=== PATIENT | female | born 1950 | race Caucasian/White ===

== ENCOUNTER 2017-09-11 07:30 | Inpatient (IN) ==
[~2017-09-11 07:30] MED LIST: ACETAMINOPHEN 500 MG TABLET PO ONE; DEXAMETHASONE 4 MG/ML INJECTION IVP ONE; FAMOTIDINE PB 20 MG/50 ML BAG IV ONE; LIDOCAINE 1% (10mg/ml) 2mL INJ PF SDV ID ONE; METOCLOPRAMIDE 10mg/2ml INJECTION IVP ONE; NOZIN NASAL SWAB NAS ONE; ONDANSETRON 4 MG/2 ML INJECTION IVP ONE; TRANEXAMIC ACID 1,000 MG in NS 100 ML IV ONE
[2017-09-11] MEDS ORDERED: EPINEPHrine PF 0.25 MG, BUPIVACAINE 0.25% PF 30 ML, MORPHINE SULFATE 15 MG, KETOROLAC I... OPSITE ONE (08:00)
[2017-09-11 08:44] VITALS: BMI 25.5
[2017-09-11] MEDS: LR 1,000 ML IV SCH ×2 (09:20→12:03)
--- NOTE | 2017-09-11 09:26 | Anesthesia Preoperative Report ---
Anesthesia Preoperative Record - Date and Time Date: 09/11/17 Preoperative Diagnosis: Rt TKA M17.11 NPO Since Date: 09/10/17 NPO Since Time: 00:00 Allergies/Adverse Reactions: Allergies Allergy/AdvReac Type Severity Reaction Status Date / Time hydrocodone [From [place]] Allergy Unknown itching, Verified 09/08/17 09:03 hives - Vital Signs Vital Signs: Temperature 98.6 F 09/11/17 08:42 Pulse Rate 81 09/11/17 09:01 Respiratory Rate 12 09/11/17 08:42 Blood Pressure 144/70 H 09/11/17 08:42 Pulse Oximetry 93 09/11/17 08:42 Height and Weight: Height 1.68 m Weight 71.9 kg Body Mass Index 25.5 - Medications Inpatient Medications: Current Medications Cefazolin Sodium (Kefzol) 2 g IVP PREOP ONE Stop: 09/11/17 10:31 Lactated Ringer's (Lactated Ringers) 1,000 mls @ 50 mls/hr IV .Q20H WILBER Epinephrine HCl 0.25 mg/Bupivacaine HCl 30 ml/Morphine Sulfate 15 mg/Ketorolac Tromethamine 60 mg/Sodium Chloride 65.25 mls @ 1 mls/hr OPSITE INTRAOP ONE PRN Reason: Protocol Stop: 09/14/17 01:14 Sodium Chloride (Iv Flush) 10 - 80 ml IV PRN PRN PRN Reason: [place] Home Medications: Home Medications Medication Instructions Recorded Confirmed Type Ascorbate Calcium [Vitamin C] 500 mg PO DAILY #0 08/16/10 09/11/17 History PARoxetine HCl [Paxil] 20 mg PO DAILY #0 08/16/10 09/11/17 History Aleve (Naproxen) 220 mg capsule 440 mg PO AM PRN 07/21/17 09/11/17 History Calcium Citrate/Vitamin D3 2 tab PO DAILY 07/21/17 09/11/17 History [Citracal + D Maximum Caplet] lutein 6 mg tablet 6 mg PO DAILY tab 07/21/17 09/11/17 History Acetaminophen [Tylenol] 1,000 mg PO Q5H 09/11/17 09/11/17 History Is Patient on Beta [place]?: No - Medical History Respiratory: DENIES: Sleep Apnea Gastrointestional: Reports: Other (IBS-takes Paxil to help control) Neuro/Musculoskeletal: Reports: HX.MS.OSAR Other History: Reports: Anesthesia Reactions (N/V), Other (psoriasis ON SCALP) - Surgical History HEENT Surgeries: Reports: Eye Surgery (left blepharoplasty) GI Surgery/Treatments: Reports: Colonoscopy Musculoskeletal Surgery/Tx: Reports: Knee Arthroscopy (Lt and Rt), Total Knee Replacement (LEFT) Anesthesia Reactions: None Hx Family Anesthesia Reaction: No History of Motion Sickness: No - Social History Smoking Status: Never smoker Hx Chewing Tobacco Use: No Second Hand Exposure: No Substance Use Type: does not use Alcohol Intake Frequency: does not drink - Pertinent Findings EKG: Sinus Rhythm - Physical Exam Respiratory Exam: Present: lungs clear Cardiovascular Exam: Present: regular rate and rhythm - Airway Assessment Mallampati Score: II Neck Extension: good Overall Assessment: no airway concerns - ASA ASA Score: 2 - Plan Anesthesia: General TIVA, General Inhalation Gases, Neuroaxial Regional/Trunk Block: Spinal Peripheral Nerve Block: Saphenous-Right - Discussion Discussion: Discussed risks/options/alternatives of anesthesia and questions answered. Patient consents. Nursing pain assessment noted. Attestation Statement: Prior to the delivery of any anesthetic medication, I examined the patient, developed the plan, obtained the patient's consent and discussed the risk and benefits of the procedure with the patient/guardian. - Additional Information Seen by Anesthesia: Yes
[2017-09-11] MEDS ORDERED: MIDAZOLAM 2mg/2ml INJECTION ONE (10:02)
[2017-09-11] MEDS ORDERED: FentaNYL 100 MCG/2 ML INJECTION ONE (10:02)
[2017-09-11] MEDS ORDERED: KETAMINE 500 MG/10 ML INJECTION ONE (10:03)
[2017-09-11] MEDS ORDERED: PROPOFOL 500 MG/50 ML VIAL IV ONE ×2 (10:04→11:52)
[2017-09-11] MEDS ORDERED: ONDANSETRON 4 MG/2 ML INJECTION ONE (10:05)
[2017-09-11] MEDS ORDERED: CEFAZOLIN 1 G INJECTION IVP ONE (10:30)
[2017-09-11] MEDS ORDERED: VANCOMYCIN 1,000 MG INJECTION ONE (10:36)
[2017-09-11] MEDS ORDERED: SALINE FLUSH 10ml SYRINGE ONE (11:16)
[2017-09-11] MEDS ORDERED: PHENYLEPHRINE INJ 10 MG/ML VIAL IV ONE (11:17)
[2017-09-11] MEDS ORDERED: GLYCOPYRROLATE 0.4 MG/2 ML INJECTION ONE (11:43)
[2017-09-11] MEDS ORDERED: SUCCINYLCHOLINE 20mg/mL 10mL INJECTION ONE (11:43)
[2017-09-11] MEDS ORDERED: VANCOMYCIN 1,000 MG INJECTION IAR ONE (11:45)
[2017-09-11] MEDS ORDERED: ROPIVACAINE 0.5% (5mg/ml) 30ml INJ ONE (11:49)
--- NOTE | 2017-09-11 12:27 | Operative Note ---
- Procedure Preoperative Diagnosis: Right knee primary degenerative joint disease Postoperative Diagnosis: Same as preoperative diagnosis. Surgeon: Carlos Rosario MD Analyst [employer]: [employer]as Complications: None. Anesthesia: Spinal. Estimated Blood Loss: See Anesthesia Record. Fluids: Please see Anesthesia Record. Description of Procedure: Mrs. Chin and her right knee were identified and marked in the preoperative holding area. She was brought back to the operating suite after a saphenous nerve block was placed in the preoperative holding area. Spinal anesthetic was administered and she was placed supine on the operating table. The right lower extremity was prepped and draped in my normal sterile fashion. Timeout was performed. The [employer] robot was used during the surgery. She had a fixed varus deformity with no flexion contracture. A standard anterior midline incision followed by medial parapatellar arthrotomy was performed. Anterior fat pad and meniscus were removed. The patella was resurfaced to a size 32. Tibial and femoral arrays were placed both within the original incision. Checkpoints were then placed both in the femur and the tibia. The bone was then registered with the [employer] robot. Osteophytes were removed and gaps were captured both 90 and 0 with correction. Because of her hyperextension of 1-2 I balanced her with gaps at 17 mm in extension and 18 mm in flexion. The [employer] robotic arm was then used to assist with the bone cuts. Posterior osteophytes and remaining meniscus were removed. Trial components were placed. We used a 4 femur and a 4 tibia with a 9 mm spacer. She tracked well and was well balanced throughout range of motion. Her bone quality was excellent so I proceeded with press-fit components. The tibia was stamped at size 4 at the marked rotation. The components were then press-fit into position including the spacer. The knee was ranged one more time to ensure good stability, balance and patellar tracking. The knee was then irrigated with Betadine solution and normal saline. 1 g of vancomycin powder was then placed into the knee joint. The capsulotomy was then closed with #1 Vicryl. I then left my critical care physician assistant to close the subcutaneous tissue with 2-0 Vicryl. Running 4-0 Monocryl will be used in the subcuticular layer. Dermabond will be used on the skin followed by sterile dressing. After drapes are removed patient will be taken to recovery room under the care of anesthesia.
--- NOTE | 2017-09-11 13:08 | Anesthesia Procedure Note ---
Peripheral Nerve Blockade - Procedure Physician: Keegan Rosario MD Date: 09/11/17 Discussion: Discussed risks/options/alternatives of anesthesia and questions answered. Patient consents. Nursing pain assessment noted. Block Start: 12:58 Block Stop: 13:03 Blocked Employed: Adductor Canal, Single Injection Indication: Post-Operative Pain Approach: Right Side Confirmed Position: Supine Patient: Consent, Risks/Benefits Discussed, Informed, Post Block Act. Discussed IV Sedation: Yes (post op) Sedation: Sedate w/Meaningful Contact Initial Vital Signs: Temperature 98.6 F 09/11/17 08:42 Temperature Source Oral 09/11/17 08:42 Pulse Rate 81 09/11/17 08:42 Respiratory Rate 12 09/11/17 08:42 Blood Pressure 144/70 H 09/11/17 08:42 Blood Pressure Mean 94 09/11/17 08:42 Blood Pressure Position Sitting 09/11/17 08:42 Pulse Oximetry 93 09/11/17 08:42 Oxygen Delivery Method 09/11/17 08:42 Post Vital Signs: Temperature 98.6 F 09/11/17 08:42 Pulse Rate 99 09/11/17 13:00 Respiratory Rate 16 09/11/17 13:00 Blood Pressure 132/64 09/11/17 13:00 Pulse Oximetry 95 09/11/17 13:00 Prep: Chlorhexadine/ETOH, Sterile Technique Ultrasound Used?: Yes - Nerve Simulator Muscle Response: No Paresthesia/Pain: None - Injectate Ropivacaine (%): 0.5 Ropivacaine (mL): 15 Was Epi 1:200,000 Used?: No Injection: Injection made incrementally with constant monitoring and aspiration every 5 ml
--- NOTE | 2017-09-11 13:25 | XRay Report ---
Indication: postoperative image PROCEDURE: XR knee RT 2V: Encounter: Initial Comparison: July 21, 2017 Findings: Postoperative changes of right total knee replacement are seen. There is expected postoperative subcutaneous gas. No evidence of hardware failure or acute fracture. No retained radiopaque surgical instruments or sponges. Overlying material causing artifact. Impression: New right total knee prosthesis without evidence of immediate complication. .
[2017-09-11] MEDS ORDERED: LORazepam 1 MG TABLET PO PRN (13:52)
[2017-09-11] MEDS ORDERED: ONDANSETRON 4 MG/2 ML INJECTION IVP PRN (13:52)
[2017-09-11] MEDS ORDERED: Oxycodone *IR* 5 MG TABLET PO PRN (13:52)
[2017-09-11] MEDS ORDERED: DiphenhydrAMINE 50 MG/ML INJECTION IVP PRN (13:52)
[2017-09-11] MEDS ORDERED: NOZIN NASAL SWAB NAS ONE (13:52)
[2017-09-11] MEDS ORDERED: DiphenhydrAMINE 25 MG CAPSULE PO PRN (13:52)
[2017-09-11] MEDS: NS 1,000 ML IV SCH (14:07)
[2017-09-11] MEDS: ACETAMINOPHEN 325 MG TABLET PO SCH ×3 (15:33→21:27)
[2017-09-11] MEDS: NOZIN NASAL SWAB NAS SCH ×2 (15:34→21:28)
[2017-09-11] MEDS ORDERED: SALINE FLUSH 10ml SYRINGE IV PRN (15:59)
--- NOTE | 2017-09-11 17:08 | Anesthesia Postoperative Note ---
- Date and Time Date: 09/11/17 Time: 13:30 - Status Patient Participated in Evaluation: Patient Participated in Person Vital Signs: Temperature 97.6 F 09/11/17 13:39 Pulse Rate 83 09/11/17 16:24 Respiratory Rate 16 09/11/17 16:24 Blood Pressure 134/61 09/11/17 16:24 Pulse Oximetry 95 09/11/17 16:24 Respiratory Function: Airway Patent, Regular Respirations Cardiovascular Function: Regular Pulse Mental Status: Alert and Oriented Pain Intensity: 0 Hydration: IV Infusing Complications During Recover: None Apparent Post Anesthesia Care Notes: moves bilateral lower extremeties - Follow-Up Instructions Instructions: Per Surgeon
[2017-09-11] MEDS: NAPROXEN 220 MG TABLET PO PRN (17:40)
[2017-09-11] MEDS: CEFAZOLIN 2 G in NS 100 ML IV SCH (18:34)
[2017-09-11] MEDS: DEXAMETHASONE 4 MG/ML INJECTION IVP SCH (18:35)
[2017-09-11] MEDS ORDERED: SENNOSIDES 8.6 MG TABLET PO SCH (21:00)
[2017-09-11] MEDS: DOCUSATE SODIUM 100 MG CAPSULE PO SCH (21:27)
[2017-09-11] MEDS: ASPIRIN *EC* 81 MG TABLET PO SCH (21:27)
[2017-09-12] MEDS: DEXAMETHASONE 4 MG/ML INJECTION IVP SCH (03:35)
[2017-09-12] MEDS: CEFAZOLIN 2 G in NS 100 ML IV SCH (03:40)
[2017-09-12] MEDS: NAPROXEN 220 MG TABLET PO PRN ×2 (03:45→11:02)
[2017-09-12] MEDS: NS 1,000 ML IV SCH (04:02)
[2017-09-12] MEDS: NOZIN NASAL SWAB NAS SCH (06:22)
[2017-09-12 07:31] VITALS: PULSE 76
[2017-09-12] MEDS: DOCUSATE SODIUM 100 MG CAPSULE PO SCH (08:27)
[2017-09-12] MEDS: ACETAMINOPHEN 325 MG TABLET PO SCH ×2 (08:32→12:22)
[2017-09-12] MEDS: ASPIRIN *EC* 81 MG TABLET PO SCH (08:34)
--- NOTE | 2017-09-12 08:54 | Orthopedic Progress Note ---
Date: Subjective/Severity of Illness: Maria Fernanda is doing great. Denies much pain. She has been up with good tolerance. No CP or SOA. Orthopedic Objective PO Vital signs: Temperature 97.9 F 09/12/17 07:30 Pulse Rate 76 09/12/17 07:30 Respiratory Rate 14 09/12/17 07:30 Blood Pressure 152/83 H 09/12/17 07:30 Pulse Oximetry 97 09/12/17 07:30 Height and Weight: Height 5 ft 6 in Weight 167 lb 5.294 oz Body Mass Index 25.5 - Constitutional General Appearance: Present: alert - Respiratory Exam Present: non-labored - Extremities Exam Extremities: Present: pulses intact. Absent: calf tenderness - Surgical Site Incision: Mepilex dressing intact, no drainage - Neurological Exam Present: intact to light touch, no deficits - Psychiatric Exam Present: alert, normal affect - Labs Result Diagrams: 09/12/17 04:08 09/12/17 04:08 Abnormal lab results 09/12/17 09/12/17 Range/Units 04:08 04:08 Hgb 11.5 L (12-16) GM/DL Hct 35.1 L (36-46) % Glucose 123 H (65-110) MG/DL H & H 09/12/17 Range/Units 04:08 Hgb 11.5 L (12-16) GM/DL Hct 35.1 L (36-46) % Orthopedic Assessment and Plan (1) Primary osteoarthritis of right knee Status: Acute Assessment and Plan: Current anti-coagulation protocol for VTE prophylaxis. SCD's. PT/OT services to improve independent function. Discharge Planning per Case Management. - Anticoagulation Therapy Anticoagulation: ASA 81 mg PO BID x6 weeks Hospital Course Summary Disclaimer: The visit summary below is not to be considered part of the above Progress Note.
[2017-09-12] MEDS ORDERED: PAROXETINE 20 MG TABLET PO SCH (09:00)
[2017-09-12] MEDS ORDERED: POLYETHYL GLYCOL 3350 17gm PACKET PO SCH (09:00)
--- NOTE | 2017-09-12 12:27 | Discharge Summary ---
Orthopedic Discharge Info Date of admission: 09/11/17 08:42 Primary care physician: German Sanchez MD Attending Physician: Keegan Rosario MD Consults: 09/11/17 08:37 Consult to Anesthesiology [CONS] Routine Reason For Exam: Preoperative Assessment 09/11/17 13:52 Case Management Consult [CONS] Routine Reason For Exam: Discharge Planning DME-Walker [CONS] Routine Height: 5 ft 6 in Weight: 158 lb 8.198 oz Comment: change dressing in 2 weeks Total Joint Outpatient Therapy [CONS] Routine Comment: change dressing in 2 weeks - Discharge Diagnosis (1) Primary osteoarthritis of right knee Status: Acute - Procedures Procedures: RT TKA - Laboratory Result Diagrams: 09/12/17 04:08 09/12/17 04:08 Laboratory: Abnormal lab results 09/12/17 09/12/17 Range/Units 04:08 04:08 Hgb 11.5 L (12-16) GM/DL Hct 35.1 L (36-46) % Glucose 123 H (65-110) MG/DL H & H 09/12/17 Range/Units 04:08 Hgb 11.5 L (12-16) GM/DL Hct 35.1 L (36-46) % Orthopedic Discharge HPI - HPI Comments This patient was admitted for elective surgical tx of end stage degenerative joint disease that failed to respond to conservative treatment. Further details of this is found in the admission H&P. Orthopedic Hospital Course Hospital course: 09/12/17 12:26 After appropriate preoperative clearance and signing of operative consent, the patient was given IV antibiotics, according to orthopedic protocol. The patient was taken to the operating room and underwent elective joint arthroplasty. Following surgery, antibiotics were discontinued less than 24 hours according to joint protocol. Appropriate anticoagulants were initiated and SCDs added for DVT prevention. The dressing was clean, dry, and intact. Pain control was obtained via multimodal approach. Bowel motivation addressed with scheduled and PRN medications. Early mobilization was initiated through PT services. Discharge arrangements made by a collaborative effort between the patient and Case Management. Follow-up is scheduled in 2-3 weeks. Discharge instructions given by orthopedic providers and nursing staff at discharge. Discharge condition was good. Ongoing care required?: No Discharge Plan - Med Rec/Dispo Referrals/Follow Up: Keegan Rosario MD [Physician] - 10/06/17 9:15 am Prescriptions: New Aspirin *EC* [Ecotrin] 81 mg PO BID #84 tab Naproxen [Aleve] 440 mg PO BID PRN #60 tab PRN Reason: Pain PEG 3350 17gm PACKET [Miralax] 17 gm PO DAILY packet Oxycodone *IR* [Roxicodone *Ir*] 5 - 15 mg PO Q3H PRN #60 tab PRN Reason: Breakthrough Pain Continue PARoxetine HCl [Paxil] 20 mg PO DAILY #0 Ascorbate Calcium [Vitamin C] 500 mg PO DAILY #0 Calcium Citrate/Vitamin D3 [Citracal + D Maximum Caplet] 2 tab PO DAILY Acetaminophen [Tylenol] 1,000 mg PO Q5H lutein 6 mg tablet 6 mg PO DAILY tab Discontinued Aleve (Naproxen) 220 mg capsule 440 mg PO AM PRN PRN Reason: Pain
[2017-09-12 12:46] VITALS: BP 123/55; RESP 20; TEMP 97; O2SAT 95
[2017-09-12] MEDS ORDERED: SENNOSIDES 8.6 MG TABLET PO PRN (12:46)
[2017-09-13] MEDS ORDERED: BISACODYL 10 MG SUPPOSITORY RECTALLY SCH (20:00)
== END 2017-09-12 13:15 | disposition home or self-care (01) | DRG 470 ==
LOC: SRG 08:42
PROVIDERS: ADMIT Orthopaedic Surgery; ATTEND Orthopaedic Surgery